=== PATIENT | male | born 1960 | race Caucasian/White ===

== ENCOUNTER 2024-04-08 16:41 | Inpatient (IN) | payer BC, SELFPAY ==
[2024-04-08] VITALS (29 sets, daily range): BP systolic 71–120; BP diastolic 48–89; BMI 24.3
--- NOTE | 2024-04-08 14:00 | ED.GENMED ---
History of Present Illness
General
Chief Complaint: Heart Rate Problem
Time Seen by Provider: 04/08/24 13:51
Travel History
Have you had any contact with someone who has COVID-19?: No
Do you have any symptoms of coronavirus? Fever > 100 degrees, chills, cough, shortness of breath, sore throat, loss of taste or smell, muscle aches, or headache?: No
History of Present Illness
History of Present Illness:
63-year-old male with history of paroxysmal atrial fibrillation not currently on anticoagulants presents to the emergency department for evaluation of heart palpitations beginning 5 days ago. He notes exertional fatigue along with the symptoms.
Has been using his home teletypesetter monitor and noting persistent A-fib. Contacted his crystal attacher and was advised to take increased doses of metoprolol however this has not affected his heart rates. Denies any chest pain at this time.
Review of Systems
Review of Systems
Allergies reviewed?: Yes
All Other Systems: ROS reviewed and negative except as documented in HPI and ROS
Phy Exam
Physical Exam
Physical Exam:
GEN: Well appearing, NAD, WDWN
Eyes: PERRLA, EOMs intact, no scleral icterus
HENT: NCAT, oral mucosa moist
Lungs: CTAB, no wheezes, rales, rhonchi, normal chest wall excursion
Cardiac: tachycardic, irregular
Abdomen: S, NT, ND, NABS, no masses or hepatosplenomegaly
Neuro: AO x 3
MSK: No gross deformity or ecchymosis. No edema. No digital clubbing
Skin: No rashes, petechiae. Normal color, no pallor or jaundice.
Psych: Calm, cooperative, proper hygiene
Course
Orders/Labs/Results
Orders:
Orders
04/08/24 13:39
Electrocardiogram (*1) Urgent
Reason for Study: Atrial Fibrillation
04/08/24 13:40
EKG- Treatment ONCE
04/08/24 13:59
Diltiazem HCl [Cardizem] 15 mg IV NOW STA
04/08/24 14:00
Diltiazem 125 mg/125 ml Nss [Cardizem] 125 mg in 125 ml IV PER PROTOCOL
Initial dose in mg/hr, then titrate:: 5
Titrate to keep:: Heart rate 80-100 bpm
Titrate by mg/hr:: 5 mg/hr
Frequency of titrations (minutes):: 15
Maximum dose in mg/hr:: 15
04/08/24 14:18
Basic Metabolic Panel Urgent
Complete Blood Count/With Diff Urgent
04/08/24 14:24
0.9% Sodium Chloride 1000 ml [Nss] 1,000 ml IV BOLUS
Diltiazem HCl [Cardizem] 25 mg IV NOW STA
04/08/24 15:04
Heparin 4,000 units IV NOW STA
Nursing to Place Non Medication Order As Directed
Physician Order: PTT 6 hours after initial start of Heparin infusion
04/08/24 15:15
Magnesium Urgent
Potassium Urgent
Protime/PTT Urgent
Heparin 56231 Units/250 ml 25,000 units in 250 ml IV PER PROTOCOL
Weight to be used for heparin protocol in kilograms (kg):: 73.5
Protocol:: Cardiac Tx/Acute Coronary
PTT Goal Range to be used:: PTT 73 to 111 seconds
Order type:: Initial
INITIAL Infusion Dose (UNITS/KG/hr) & then follow protocol:: 15 units/kg/hr
Infusion Dose in UNITS/hr & then follow protocol (UNITS/hr):: 1,100
INFUSION RATE in mL/hr & then follow protocol (mL/hr):: 11
PTT less than or equal to 64 seconds:: Increase rate by 200 units/hr (+ 2 mL/hr)
PTT 64.1 to 72.9 seconds:: Increase rate by 100 units/hr (+ 1 mL/hr)
PTT 73 to 111 seconds:: Target Range. No change in rate.
PTT 111.1 to 130.9 seconds:: Decrease rate by 100 units/hr (- 1 mL/hr)
PTT 131 to 199.9 seconds:: HOLD for 1 hr. Then decrease rate by 200 units/hr (- 2 mL/hr)
PTT greater than or equal to 200 seconds:: HOLD for 2 hrs & Notify Provider. Then decrease by 200 units/hr (-
2 mL/hr)
Lab follow-up:: Each change, PTT q6h until 2 consecutive are therapeutic. Then PTT
daily.
04/08/24 15:25
Amiodarone [Cordarone] [address]
04/08/24 15:29
Amiodarone [Cordarone] 150 mg Dextrose 5%/Water 100 ml [D5w] 100 ml IV NOW
04/08/24 15:36
0.9% Sodium Chloride 1000 ml [Nss] 1,000 ml IV BOLUS
04/08/24 15:45
Amiodarone [Cordarone] 900 mg DEXTROSE 5% PVC-free BAG [D5W PVC-free BAG] 500 ml IV PER PROTOCOL
Initial Dose in mg/min:: 1
Duration of initial dose (hours):: 6
Subsequent dose in mg/min:: 0.5
Duration of subsequent dose (hours):: 18
Maximum dose in mg/min:: 1
Hold and notify provider if:: Heart rate < 60 BPM or SBP < 90 mmHg or MAP < 60 mmHg
04/08/24 15:49
Diphenhydramine [Benadryl] 12.5 mg IV NOW STA
04/08/24 16:32
Admit/Transfer Patient As Directed
Co-Sign Provider:
Level of Care: Inpatient admission
Assign to:: IVU
Physician / Group: sean
Diagnosis: afib rvr
Reason for Hospitalization: afib rvr
Expected length of stay greater than two midnights?: Yes
ELOS- Estimated Length of Stay in days: 2
I certify the patient meets the requirements for IP care: Yes
04/08/24 16:33
Code Status As Directed
Resuscitation Status: Full Code
04/09/24 06:00
Echo Anibal W/echo Doppler (#17) IN AM
Reason for Study: ANIBAL guided CV for rapid Afib
Cardiology Consult: Chandrakant Underwood
NPO
Allow oral meds: Yes
Allow clear liquids: No
NPO with Ice Chips: No
Abnormal Lab Results
04/08/24 04/08/24
14:18 15:15
WBC 11.5 H 10^3/uL
(4.8-10.8)
RBC 4.15 L 10^6/uL
(4.70-6.10)
Hct 36.8 L %
(39.0-52.0)
MCH 31.8 H pg
(27.0-31.0)
Absolute Neuts (auto) 7.4 H 10^3/uL
(1.4-6.5)
Absolute Monos (auto) 0.8 H 10^3/uL
(0.1-0.6)
PT 15.5 H Sec
(11.4-14.6)
Carbon Dioxide 21 L mmol/L
(22-30)
BUN 23 H mg/dl
(9-20)
04/08/24 14:18
04/08/24 15:15
Vital Signs
Initial and Last Documented VS:
Initial Vital Signs
Temp Pulse Resp BP Pulse Ox
98.6 F 58 18 100/76 100
04/08/24 13:35 04/08/24 13:35 04/08/24 13:35 04/08/24 13:35 04/08/24 13:35
Last Documented Vital Signs
Temp Pulse Resp BP Pulse Ox
98.6 F 162 16 108/78 100
04/08/24 13:35 04/08/24 16:25 04/08/24 16:25 04/08/24 16:25 04/08/24 16:25
MDM/Problems Addressed
MDM/Problems Addressed:
Due to the patient's marked tachycardia he was initially started on IV diltiazem, received 2 boluses and continuous infusion. Despite these treatments there was essentially no change in his persistent rapid A-fib. Given that he had been taking
escalating doses of beta-blockers at home with no improvement I contacted cardiology and they are in agreement with the decision to start amiodarone. Shortly after initiation of amiodarone and heparin the patient noted diffuse itching, was given a
12.5 mg IV dose of diphenhydramine with resolution of symptoms. No concern for airway compromise. Uncertain if this could represent an allergy given that he has received both these medications in the past. Will be admitted to the hospitalist
service for further management
Comment
Comment:
EKG independently interpreted by me shows a rapid atrial fibrillation at a rate of 175
*Critical Care Note
Total Time (30-74mins, 75-104mins- exclusive of procedures): 65 minutes
comment:
Critical care time: 65 minutes
Critical care time was exclusive of: Separately billable procedures, treating other patients, and teaching time
Critical care was necessary to treat or prevent imminent or life-threatening deterioration of the following conditions: Rapid A-fib/hypotension
Critical care time spent personally by me on the following activities:
[x] Review of old charts
[x] Obtaining history from patient or surrogate
[x] Ordering and review of the laboratory studies
[x] Ordering and review of radiographic studies
[x] Ordering and performing treatments and interventions
[x] Patient patient's response to treatment
[x] Development of treatment plan with patient or surrogate
ED Attending Note
-
Portions of this chart may have been created with voice recognition software.� Occasional wrong word or��sound alike� substitutions may have occurred due to the inherent limitations of voice recognition software.
Discharge Plan
Departure
Patient Disposition: Admit
Date of Disposition: 04/08/24
Time of Disposition: 15:41
Admit to: IVU
Presentation/result/management discussed w/ accepting MD/DO: Hospitalist
Discharge Problem:
Atrial fibrillation with RVR
Prescriptions:
No Action
aspirin 81 mg Tablet,Chewable
81 mg PO DAILY Qty: 30 0RF
metoprolol succinate 25 mg Tablet Extended Release 24 Hr
12.5 mg PO DAILY Qty: 30 11RF
tadalafil 5 mg tablet
5 mg PO PRN PRN (Reason: ED)
Referrals:
Pepe Jason MD [Family Provider] -
Discharge Date and Time
Print Language: INDONESIAN
[2024-04-08] MEDS: CARDIZEM 15 MG IV (14:15)
[2024-04-08 14:24] LABS: % Basophils 0.5 % (0-2); % Eosinophils 2.3 % (0-6); % Immature Granulocytes 0.3 % (0-0.5); % Lymphocytes 25.5 % (20.5-51.1); % Monocytes 7.3 % (1.7-9.3); % Neutrophils 64.1 % (42.2-75.2); Absolute Basophils 0.1 10^3/uL (0-0.2); Absolute Eosinophils 0.3 10^3/uL (0-0.7); Absolute Lymphocytes 2.9 10^3/uL (1.2-3.4); Absolute Monocytes 0.8 10^3/uL (0.1-0.6); Absolute Neutrophils 7.4 10^3/uL (1.4-6.5); Hematocrit 36.8 % (39.0-52.0); Hemoglobin 13.2 g/dL (13.0-18.0); Mean Corp Hgb Conc. 35.9 g/dL (33.0-37.0); Mean Corpuscular Hgb 31.8 pg (27.0-31.0); Mean Corpuscular Volume 88.7 fL (80.0-94.0); Mean Platelet Volume 9.4 fL (7.4-10.4); Nucleated Red Blood Cells % 0 % (-); Platelet Count 256 10^3/uL (130-400); Red Blood Cell Count 4.15 10^6/uL (4.70-6.10); Red Cell Dist. Width 13.4 % (11.5-14.5); White Blood Cell Count 11.5 10^3/uL (4.8-10.8)
[2024-04-08] MEDS: CARDIZEM 125 IV (14:24)
[2024-04-08] MEDS: NSS 1000 IV ×2 (14:28→16:18)
[2024-04-08] MEDS: CARDIZEM 25 MG IV (14:29)
[2024-04-08 14:37] LABS: Blood Urea Nitrogen 23 mg/dl (9-20); Calcium 8.9 mg/dl (8.4-10.2); Carbon Dioxide 21 mmol/L (22-30); Chloride 107 mmol/L (98-107); Glucose 95 mg/dl (70-99); Sodium 135 mmol/L (135-145); eGFR > 60.00
[2024-04-08 15:36] LABS: INR 1.22; PT 15.5 Sec (11.4-14.6)
[2024-04-08 15:37] LABS: APTT 29.7 Sec (23.4-35.0)
[2024-04-08] MEDS: HEPARIN 4000 UNITS IV (15:38)
[2024-04-08 15:39] LABS: Magnesium 1.8 mg/dl (1.6-2.3); Potassium 4.6 mmol/L (3.5-5.1)
[2024-04-08] MEDS: HEPARIN 25000 UNITS/250 ML IV (15:39)
[2024-04-08] MEDS: CORDARONE 103 MG IV (15:40)
--- NOTE | 2024-04-08 15:54 | CON.CAR ---
Addendum entered and electronically signed by Chandrakant Underwood MD 04/08/24 17:00:
Patient seen and examined
Discussed plan of care with patient and as well as our rounding team
He has been in atrial fibrillation since Friday night and has been taking metoprolol 12.5 mg twice daily and has not converted to sinus rhythm.
In the ER he has heart rates in the 140s to 200s although is relatively asymptomatic noticing dyspnea and dyspnea on exertion. 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
Friday evening. He was evaluated by our team in the fall as an outpatient and discussed options for atrial fibrillation. 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
No syncope presyncope or chest pain. He has not had prior cardiac ischemic evaluation.
Examination:
Physical Exam
General: no apparent distress, not acutely ill
Neck: supple. no meningeal signs. normal psoterior pharynx
Heart: s1/s2 regular rate and rhythm, no murmur. equal radial pulses.
Lungs: no acute respiratory distress. clear bilaterally
Abdomen: normal bowel sounds. not tender. no CVAT
Neuro: alert and oriented. no focal neurological deficits
Skin: no rash
Psychiatric: well kept. interactive and cooperative
Extremities: no edema. no calf tenderness. negative homans. good distal pulses
Impression:
Afib with RVR
Paroxysmal Afib
Afib with RVR and aberrancy spontaneously converting to SR 07/17/23Not chronically anticoagulated due to low [id number] score and patient choice
Daily alcohol use
Recovered NICM EF was 45% by echo 07/17/23 and improved to 54% by echo 09/23/23
Echo 07/17/23: EF 45 to 50%, no regional wall motion abnormalities, normal RV size and function, no
Echo 09/23/23: EF 54%, no regional wall motion abnormalities, normal RV size and function, no MR, no AAS, normal pericardium without effusion
Plan:
-Patient came to [facility] today with palpitations that started Friday night and was found to be in Afib so cardiology has been consulted. Patient says that after drinking his 3rd beer Friday night, he never drinks more than 3, he started with
palpitations. He called the cardiology office on Friday and was told to take an extra Toprol XL 25 mg plus another 25 mg if no improvement an hour later. Cardiology called patient the next day to check on him and he reported that he was still in
Afib and HRs were only a bit better so his Toprol XL was increased to 25 mg BID, but when he started with lightheadedness today he decided to come to [facility]. No chest pain. No SOB.
-ECG reviewed by me shows Afib with RVR.
-Cardizem 25 mg IV x1 given in ER and then started on Cardizem gtt at 15 mg/hr. HRs remain 165-175.
-Amiodarone gtt ordered and started in ER.
-Reviewed with patient and that if patient fails to convert with IV meds overnight then will plan on a SHAN/CV. Patient recalls that this was plan during his last admission 06/2023 that is similar to his presentation today and he is comfortable
with this plan.
-Discussed short-term plan of SHAN/CV and also long-term plan of possible ablation or AAD. We will plan SHAN guided cardioversion tomorrow morning after initiation of Eliquis today. He is amenable to Eliquis on a daily basis until further long-term
therapies are pursued.
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 [id number] score is zero.
-No previous CHECO eval
-No previous ischemic eval, will plan on an outpatient stress test
-Patient will need re-eval by EP as an outpatient with Dr. Lacy. In addition to the metoprolol as dosed at 25 mg twice daily as long as his heart rates are reasonable and Eliquis would consider amiodarone 200 mg twice daily x 2 weeks then daily
at discharge just as a short-term medication until he can be evaluated by Dr. Lacy to consider ablation. Given this is his 'busy season' he wants to pursue interventional therapy in the mid to late summer.
Original Note:
Consultation
Consultation Request
Date/Time Consultation Requested: 04/08/24
Date/Time Consultation Performed: 04/08/24
Requesting Provider: Starla RAMACHANDRAN in ER
Performing Provider: Dr. Underwood
Reason for Consultation: Afib with RVR
Medical History
-
History of Present Illness:
Patient came to [facility] today with palpitations that started Friday night and was found to be in Afib so cardiology has been consulted. Patient says that after drinking his 3rd beer Friday night, he never drinks more than 3, he started with
palpitations. He called the cardiology office on Friday and was told to take an extra Toprol XL 25 mg plus another 25 mg if no improvement an hour later. Cardiology called patient the next day to check on him and he reported that he was still in
Afib and HRs were only a bit better so his Toprol XL was increased to 25 mg BID, but when he started with lightheadedness today he decided to come to [facility]. No chest pain. No SOB.
PMH:
Paroxysmal Afib
Afib with RVR and aberrancy spontaneously converting to SR 07/17/23
Not chronically anticoagulated due to low [id number] score and patient choice
Daily alcohol use
Recovered NICM EF was 45% by echo 07/17/23 and improved to 54% by echo 09/23/23
Past Medical History
Past Medical History: Other (in HPI)
Past Surgical History: Orthopedic
Social History
Tobacco: Former Smoker
Alcohol: Daily (2-3 beers a day, no more than 3 a day)
Personal:
Living: With Family
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
Family History
Family History: Cancer and Diabetes
Allergies / Home Medications
Allergy/AdvReac Type Severity Reaction Status Date / Time
No Known Allergies Allergy Verified 04/08/24 13:35
�Medication �Instructions �Recorded �Confirmed �Type
aspirin 81 mg chewable tablet 81 mg PO DAILY Arrhythmia #30 tabs 07/17/23 04/08/24 Rx
metoprolol succinate 25 mg 12.5 mg (1/2 x 25 mg) PO DAILY 07/17/23 04/08/24 Rx
tablet,extended release 24 hr Arrhythmia #30 tabs
tadalafil 5 mg tablet 5 mg PO PRN PRN ED 04/08/24 04/08/24 History
Review of Systems
-
History Source: Patient and Family ( sitting bedside)
All other systems: Negative unless noted
Physical Exam
Vital Signs
Temp Pulse Resp BP Pulse Ox
98.6 F 170 15 90/79 100
04/08/24 13:35 04/08/24 15:43 04/08/24 15:43 04/08/24 15:43 04/08/24 15:43
GEN: NAD. AAOx3
HEENT: EOMI, MMM, wearing glasses
LUNGS: CTA B/L, no wheezes or rales
CV: Irreg irreg and rapid, difficult to appreciate murmur
ABD: soft, BS+, NT, ND
EXT: No clubbing, cyanosis, lesions or edema B/L
NEURO: Gross non-focal
SKIN: Warm, dry and pink. No rash
Lab Results
04/08/24 14:18
04/08/24 15:15
Impression / Plan
-
PCP: Reggie DWYER, Dr. Jason
Cardiology: None prior to admission
Impression:
Afib with RVR
Paroxysmal Afib
Afib with RVR and aberrancy spontaneously converting to SR 07/17/23
Not chronically anticoagulated due to low [id number] score and patient choice
Daily alcohol use
Recovered NICM EF was 45% by echo 07/17/23 and improved to 54% by echo 09/23/23
Echo 07/17/23: EF 45 to 50%, no regional wall motion abnormalities, normal RV size and function, no
Echo 09/23/23: EF 54%, no regional wall motion abnormalities, normal RV size and function, no MR, no AAS, normal pericardium without effusion
Plan:
-Patient came to [facility] today with palpitations that started Friday night and was found to be in Afib so cardiology has been consulted. Patient says that after drinking his 3rd beer Friday night, he never drinks more than 3, he started with
palpitations. He called the cardiology office on Friday and was told to take an extra Toprol XL 25 mg plus another 25 mg if no improvement an hour later. Cardiology called patient the next day to check on him and he reported that he was still in
Afib and HRs were only a bit better so his Toprol XL was increased to 25 mg BID, but when he started with lightheadedness today he decided to come to [facility]. No chest pain. No SOB.
-ECG reviewed by me shows Afib with RVR.
-Cardizem 25 mg IV x1 given in ER and then started on Cardizem gtt at 15 mg/hr. HRs remain 165-175.
-Amiodarone gtt ordered and started in ER.
-Reviewed with patient and that if patient fails to convert with IV meds overnight then will plan on a SHAN/CV. Patient recalls that this was plan during his last admission 06/2023 that is similar to his presentation today and he is comfortable
with this plan.
-Discussed short-term plan of SHAN/CV and also long-term plan of possible ablation or AAD.
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 [id number] score is zero.
-No previous CHECO eval
-No previous ischemic eval, will plan on an outpatient stress test
-Patient will need re-eval by EP as an outpatient
[2024-04-08] MEDS: BENADRYL 12.5 MG IV (15:55)
[2024-04-08] MEDS: CORDARONE 518 MG IV (16:12)
--- NOTE | 2024-04-08 16:36 | HPS.HSE ---
Family Physician
-
Family Physician: Pepe Jason
Chief Complaint
-
palpitations, chest discomfort
History of Present Illness
63-year-old male past medical history of paroxysmal atrial fibrillation, alcohol use disorder, presenting with palpitations and chest discomfort over the past 4 to 5 days. He noticed tachycardia on his phone diana. He has also been having shortness
of breath when he lies down flat and has required multiple pillows to sleep more comfortably. He is also feeling feeling dizzy with exertion. Denies syncope. Denies any nausea or vomiting or sweating.
He does drink a case of beers every week. He stopped smoking 10 years ago. He does use marijuana. Denies any other drugs.
Medical History
Past Medical History
Past Medical History: Reports Other (paroxysmal atrial fibrillation, alcohol use disorder, )
Past Surgical History: Reports Other (Rotator cuff surgery, pins in foot )
Social History
Tobacco: Former Smoker
Alcohol: Occasional
Drug: Marijuana
Family History
Family History: Not pertinent
Allergies / Home Medications
Allergies reflects when Allergies were last updated in [facility].
Home Medications with original date entered in [facility]
Allergy/Medication List:
Allergies
Allergy/AdvReac Type Severity Reaction Status Date / Time
No Known Allergies Allergy Verified 04/08/24 13:35
Home Medications
aspirin 81 mg chewable tablet 81 mg PO DAILY Arrhythmia #30 tabs 07/17/23
metoprolol succinate 25 mg tablet,extended release 24 hr 12.5 mg (1/2 x 25 mg) PO DAILY Arrhythmia #30 tabs 07/17/23
tadalafil 5 mg tablet 5 mg PO PRN PRN ED 04/08/24
Review of Systems
-
History Source: Patient
A 12 point ROS was completed and negative except as noted: Yes
Constitutional: Reports No Symptoms
EENT: Reports No Symptoms
Respiratory: Reports See HPI
Cardiac: Reports See HPI
Abdomen/GI: Reports No Symptoms
: Reports No Symptoms
Musculoskeletal: Reports No Symptoms
Skin: Reports No Symptoms
Neurological: Reports No Symptoms
Endocrine: Reports No Symptoms
Hematologic/Lymphatic: Reports No Symptoms
Psych: Reports No Symptoms
Physical Exam
Vital Signs
Vital Signs
Temp Pulse Resp BP Pulse Ox
98.6 F 162 16 108/78 100
04/08/24 13:35 04/08/24 16:25 04/08/24 16:25 04/08/24 16:25 04/08/24 16:25
Physical Exam
General: Well Developed, Well Nourished and No Apparent Distress
HEENT: NormoCephalic, Moist mucous membranes and Atraumatic
Respiratory: Clear
Cardiac: S1/S2 and Regular Rhythm; No Murmur or Rub
GI: Soft, Non Tender, Non Distended and Normal Bowel Sounds; No Organomegaly
Rectal: Deferred by Provider
Musculoskeletal: No Clubbing, No Cyanosis and No Edema
Skin: No Rash
Neuro: Nonfocal/grossly intact
Laboratory Results
-
04/08/24 14:18
04/08/24 15:15
Laboratory Results
PT 15.5 Sec (11.4-14.6) H 04/08/24 15:15
INR 1.22 04/08/24 15:15
APTT 29.7 Sec (23.4-35.0) 04/08/24 15:15
Total Bilirubin Cancelled 04/08/24 14:18
AST Cancelled 04/08/24 14:18
ALT Cancelled 04/08/24 14:18
Alkaline Phosphatase Cancelled 04/08/24 14:18
Data Reviewed
-
Lab Data: Labs Reviewed by me
Old Records: Reviewed
Impression/Plan
-
IMPRESSION:
PLAN:
# Atrial fibrillation with RVR
-EKG showed atrial fibrillation with RVR
-Chest x-ray unremarkable
-IV fluids given, hold further fluids given shortness of breath and possible heart failure
-No significant response to Cardizem drip so amiodarone drip also started
-Continue metoprolol
-Check TSH
-Heparin drip, no longer requires aspirin
-N.p.o past midnight
-cardiology consulted and plan for SHAN cardioversion tomorrow
Alcohol use disorder
-Drinks case of beer per week, sometimes up to 4 beers at a time
Full code
DVT prophylaxis�heparin drip
Regular diet, n.p.o past midnight
[2024-04-08] MEDS: ELIQUIS 5 MG PO (20:25)
--- NOTE | 2024-04-08 22:30 | PTCARENOTE ---
VS captured for ED time frame
[2024-04-08 23:21] LABS: TSH Reflex To Free T4 2.12 uIU/ml (0.47-4.68)
--- NOTE | 2024-04-08 23:33 | PTCARENOTE ---
Pt rec'd from ED via stretcher in afib with rates from 120-180. occ pvc's noted and even a few short runs of Vt 5 beats long. Amio gtt infusing via RAC switched to right forearm (remove from joint area). Amio decreased as per protocol to 0.5 mg at
2215. Pt aware to call nursing immed if pain or swelling at site is noted. heparin gtt d/c'd at 8pm after po Eliquis given. During evening shift pt stated he was anxious; because over the past two days he has barely slept. Pt states 'when I fall
asleep I wake up choking and gasping for air'. Pt denies hx of sleep apnea. O2 at 2 lit n/c placed and pt placed on continuous pulse ox at HS. Pt aware of npo status after mn for SHAN/CV in am. call ball within reach.
[2024-04-09] VITALS (7 sets, daily range): BP systolic 95–112; BP diastolic 70–81
--- NOTE | 2024-04-09 05:06 | PTCARENOTE ---
Pt reports having slept well. stated that he did not have any further 'choking,sob' episodes. Pt can be heard clearing his throat repetitively this morning. sat on 2 lit n/c remained 99%. uncontrolled Afib on telemetry with freq pvc's noted. pt
remains npo for SHAN/CV today.
[2024-04-09 05:33] LABS: % Basophils 0.4 % (0-2); % Eosinophils 1.7 % (0-6); % Immature Granulocytes 0.4 % (0-0.5); % Lymphocytes 20.2 % (20.5-51.1); % Monocytes 6.6 % (1.7-9.3); % Neutrophils 70.7 % (42.2-75.2); Absolute Basophils 0.1 10^3/uL (0-0.2); Absolute Eosinophils 0.2 10^3/uL (0-0.7); Absolute Immature Granulocytes 0.1 10^3/uL (0-0.05); Absolute Lymphocytes 2.3 10^3/uL (1.2-3.4); Absolute Monocytes 0.8 10^3/uL (0.1-0.6); Absolute Neutrophils 8.1 10^3/uL (1.4-6.5); Hematocrit 35.6 % (39.0-52.0); Hemoglobin 12.7 g/dL (13.0-18.0); Mean Corp Hgb Conc. 35.7 g/dL (33.0-37.0); Mean Corpuscular Hgb 32.1 pg (27.0-31.0); Mean Corpuscular Volume 89.9 fL (80.0-94.0); Mean Platelet Volume 9.6 fL (7.4-10.4); Nucleated Red Blood Cells % 0 % (-); Platelet Count 228 10^3/uL (130-400); Red Blood Cell Count 3.96 10^6/uL (4.70-6.10); Red Cell Dist. Width 13.7 % (11.5-14.5); White Blood Cell Count 11.4 10^3/uL (4.8-10.8)
[2024-04-09 06:46] LABS: Hepatitis C Antibody Negative (Negative)
[2024-04-09 07:31] LABS: ALT (SGPT) 83 U/L (0-50); AST (SGOT) 38 U/L (17-59); Albumin 3.2 g/dl (3.5-5.0); Alkaline Phosphatase 98 U/L (38-126); Blood Urea Nitrogen 15 mg/dl (9-20); Calcium 8.7 mg/dl (8.4-10.2); Carbon Dioxide 19 mmol/L (22-30); Chloride 109 mmol/L (98-107); Estimated Creatinine Clearance 91 ml/min; Glucose 109 mg/dl (70-99); Potassium 4.3 mmol/L (3.5-5.1); Sodium 136 mmol/L (135-145); Total Bilirubin 1.1 mg/dl (0.2-1.3); Total Protein 6.3 g/dl (6.3-8.2); eGFR > 60.00
--- NOTE | 2024-04-09 07:34 | W.PN.CARDCBS ---
Addendum entered and electronically signed by Dm Reyes MD 04/09/24 12:42:
I saw and examined the patient.
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
Comment: Briefly, 63-year-old man past medical history of paroxysmal atrial fibrillation presenting with atrial fibrillation with rapid ventricular response
Unfortunately his heart rate has been difficult to control in A-fib
Underwent SHAN guided direct-current cardioversion with anabaptist of normal sinus rhythm earlier today
Started on IV amiodarone, plan to transition to oral amiodarone on discharge
Eliquis for cardioembolic prophylaxis
Ultimately may benefit from EP evaluation regarding ablation
LV function appeared to be mlid to moderately reduced by SHAN however rapid atrial fibrillation makes assessment challenging, would plan for reevaluation of LV function as an outpatient
Original Note:
Today's Communication / Plan
-
Continue IV amiodarone for now, transition to 200mg BID at discharge
Continue Eliquis 5mg BID
SHAN/CV this AM
Will arrange follow up
Impression / Plan
-
PCP: Reggie DWYER, Dr. Jason
Cardiology: None prior to admission
Impression:
Paroxysmal Afib w/ RVR
Afib with RVR and aberrancy spontaneously converting to SR 07/17/23
Not chronically anticoagulated due to low [id number] score and patient choice
Daily alcohol use
Recovered NICM EF was 45% by echo 07/17/23 and improved to 54% by echo 09/23/23
Echo 07/17/23: EF 45 to 50%, no regional wall motion abnormalities, normal RV size and function, no
Echo 09/23/23: EF 54%, no regional wall motion abnormalities, normal RV size and function, no MR, no AAS, normal pericardium without effusion
Plan:
-Presented with rapid afib. Started on cardizem drip in the ER, transitioned to IV amiodarone given hypotension.
-Remains in rapid afib this AM with HRs in the 170s.
-NPO for SHAN/CV this AM.
-Continue IV amiodarone for now, will transition to PO 200mg twice daily for 2 weeks and then transition to daily therafter.
-Continue Eliquis 5 mg BID. 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 [id number] score is zero.
-No previous CHECO eval, will consider as OP.
-No previous ischemic eval, will plan on an outpatient stress test.
-Will follow up with EP after discharge, patient prefers to hold off on further interventions until later in the summer.
HPI: Patient came to [facility] today with palpitations that started Friday night and was found to be in Afib so cardiology has been consulted. Patient says that after drinking his 3rd beer Friday night, he never drinks more than 3, he started with
palpitations. He called the cardiology office on Friday and was told to take an extra Toprol XL 25 mg plus another 25 mg if no improvement an hour later. Cardiology called patient the next day to check on him and he reported that he was still in
Afib and HRs were only a bit better so his Toprol XL was increased to 25 mg BID, but when he started with lightheadedness today he decided to come to [facility]. No chest pain. No SOB.
Progress Note - Bobbin Dumper
Subjective
Date of Service: April 09, 2024
He feels the same overnight, still w/ fatigue.
Objective
Labs:
04/09/24 05:00
04/09/24 06:41
Labs
Hgb 12.7 g/dL (13.0-18.0) L 04/09/24 05:00
Hct 35.6 % (39.0-52.0) L 04/09/24 05:00
Plt Count 228 10^3/uL (130-400) 04/09/24 05:00
PT 15.5 Sec (11.4-14.6) H 04/08/24 15:15
INR 1.22 04/08/24 15:15
APTT Cancelled 04/08/24 19:39
Sodium 136 mmol/L (135-145) 04/09/24 06:41
Potassium 4.3 mmol/L (3.5-5.1) 04/09/24 06:41
BUN 15 mg/dl (9-20) 04/09/24 06:41
Creatinine 0.8 mg/dL (0.7-1.3) 04/09/24 06:41
Glucose 109 mg/dl (70-99) H 04/09/24 06:41
Vital Signs and I&O:
Vital Signs
Temp Pulse Resp BP Pulse Ox
98.4 F 143 20 95/77 98
04/09/24 04:51 04/09/24 05:00 04/09/24 04:51 04/09/24 04:51 04/09/24 04:51
Vital Signs
Temp Pulse Resp BP Pulse Ox
98.4 F 143 20 95/77 98
04/09/24 04:51 04/09/24 05:00 04/09/24 04:51 04/09/24 04:51 04/09/24 04:51
Intake & Output
04/07/24 04/08/24 04/09/24 04/10/24
06:59 06:59 06:59 06:59
Intake Total 367 / 367
Output Total 775 / 775
Balance -408 / -408
Physical Exam
Physical Exam
GEN: No distress, awake, alert and oriented x3
HEENT: EOMI, MMM
LUNGS: CTA B/L, no wheezes or rales
CV: irregular, rapid, S1/S2, no murmur
EXT: No clubbing, cyanosis, lesions or edema B/L
NEURO: Gross non-focal
SKIN: Warm, dry and pink. No rash
[2024-04-09] MEDS: ELIQUIS 5 MG PO ×2 (07:59→20:32)
[2024-04-09] MEDS: TOPROL XL 12.5 MG PO (07:59)
--- NOTE | 2024-04-09 09:48 | PTCARENOTE ---
Pt continues in rapid atrial fib up to rate of 170-199, 10 beat run NSVT and frequent shorter runs of NSVT. Sophie Jc NP notified , pt NPO for CV today as soon as able. Pt on bedrest, reports feeling short of breath at times, SBP 125.
--- NOTE | 2024-04-09 12:30 | CM ---
priced vinay at [facility], his copay is $85- he can use the $10 copay card. [facility] does not have it in stock but is ordering it for tues. called [facility], they do have it in stock- pt given 30 day fee coupon and a 30 day script to
bring to [facility] after dc. pt agreeable to this plan.
--- NOTE | 2024-04-09 12:34 | CM ---
spoke to pt in room, she is prev indep, lives with his in a 2 story home with no steps to enter. he denies any dc planning needs or dme's. plan is for dc to home when medically stable.
--- NOTE | 2024-04-09 12:39 | ITS.CL.CARDI ---
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
Cardioversion
Procedure Report:
Procedure: SHAN-guided electrical cardioversion
Pre-operative diagnosis: Persistent atrial fibrillation
Post-operative diagnosis: Persistent atrial fibrillation status post DC cardioversion to sinus rhythm
Anesthesia: MAC
Attending Physician: Dm Reyes MD
Procedure Description: The patient was brought to the electrophysiology laboratory in the fasting state. Informed consent was obtained from the patient prior to the start of the procedure. Adherence to anticoagulation was confirmed. Electrodes were
placed on the patient and connected to an external defibrillator. Monitoring of blood pressure, ECG tracings, and pulse oximetry was initiated. The pads were applied to the patient in the anterior and posterior positions. The patient was sedated by
the anesthesiologist. A SHAN (reported separately) was performed prior to the cardioversion. No left atrial or left atrial appendage thrombus was seen. After the SHAN probe was removed, a 200 joule biphasic synchronized shock was delivered to the
patient under MAC anesthesia. Sinus rhythm was successfully restored. The patient recovered uneventfully from MAC anesthesia. There were no immediate post-procedure complications. The patient left the lab in good condition. The attending physician
was present throughout the entire procedure.
Impression: Successful SHAN-guided direct current cardioversion with yarsani of sinus rhythm after one 200 joule biphasic synchronized shock.
--- NOTE | 2024-04-09 13:46 | W.PN.HOSP.TC ---
Today's Communication/Plan
-
cardioversion today
switch to PO amio as per cards
eliquis
Assessment / Plan
Assessment / Plan
Physical Exam
General: Well Developed, Well Nourished and No Apparent Distress
HEENT: NormoCephalic, Moist mucous membranes and Atraumatic
Respiratory: Clear
Cardiac: S1/S2 and Regular Rhythm; No Murmur or Rub
GI: Soft, Non Tender, Non Distended and Normal Bowel Sounds; No Organomegaly
Rectal: Deferred by Provider
Musculoskeletal: No Clubbing, No Cyanosis and No Edema
Skin: No Rash
Neuro: Nonfocal/grossly intact
PLAN:
# Atrial fibrillation with RVR
-EKG showed atrial fibrillation with RVR
-No significant response to Cardizem drip so amiodarone drip also started; also suboptimal response
-SHAN/Cardioversion today - went back to NSR
�Transition to p.o. amiodarone on discharge
- Cont BB
� Eliquis required embolic prophylaxis
� EP evaluation regarding ablation outpatient
� LV function mildly to moderately reduced, however in rapid A-fib�will need repeat outpatient echo
Alcohol use disorder
-Drinks case of beer per week, sometimes up to 4 beers at a time
�Educated on cessation
Full code
DVT prophylaxis�Eliquis
Regular diet
Anticipated Discharge: 24 - 48 hours
Subjective/Interval History
-
Date of Service: April 09, 2024
elevated hr despite amio ggt
Objective Data
-
Labs:
Laboratory Results
04/09/24 04/09/24
05:00 06:41
WBC 11.4 H
Hgb 12.7 L
Hct 35.6 L
Plt Count 228
Sodium Cancelled 136
Potassium Cancelled 4.3
Chloride Cancelled 109 H
Carbon Dioxide Cancelled 19 L
BUN Cancelled 15
Creatinine Cancelled 0.8
Glucose Cancelled 109 H
Calcium Cancelled 8.7
Total Bilirubin Cancelled 1.1
AST Cancelled 38
ALT Cancelled 83 H
Alkaline Phosphatase Cancelled 98
Vital Signs:
Vital Signs
Temp Pulse Resp BP Pulse Ox
98.6 F 82 18 107/75 98
04/09/24 13:24 04/09/24 13:17 04/09/24 13:24 04/09/24 13:17 04/09/24 13:25
I&O
04/08/24 04/09/24 04/10/24
06:59 06:59 06:59
Intake Total 367 / 367
Output Total 775 / 775 400 / 400
Balance -408 / -408 -400 / -400
Review of Systems
-
History Source: Patient
All other systems: Not reviewed unless documented
Data Reviewed
-
Diagnostic Radiology: Image personally visualized and interpreted and Report Reviewed by me
Labs: Labs Reviewed by me
--- NOTE | 2024-04-09 15:11 | PTCARENOTE ---
Addendum entered by Dalila Law RN 04/09/24 18:40:
Amiodarone infusion completed at 16:15, peripheral IV removed at that time, plan to start oral amiodarone tonight.
Original Note:
Pt in rapid atrial fib at a rate @ 150-190 with 10 beat runs of NSVT. Pt c/o SOB. Pt had SHAN/CV to sinus rhythm, pt recovered without problem.
[2024-04-09] MEDS: PACERONE 200 MG PO (20:32)
[2024-04-09] MEDS: TYLENOL 650 MG PO (20:56)
--- NOTE | 2024-04-10 00:23 | PTCARENOTE ---
Assumed care. Patient walking in room, NSR in the 80-90's. Tylenol given for a dull headache, lights off,patient currently sleeping, call ball in reach
[2024-04-10 03:09] VITALS: BP 117/60
[2024-04-10] MEDS: MOTRIN 400 MG PO (03:54)
--- NOTE | 2024-04-10 04:00 | PTCARENOTE ---
Addendum entered by Juan Alberto Barrios RN 04/10/24 05:45:
Patient complaints of pain in the back of right knee. Worsens with lifting and bending; has feeling of fullness behind his knee. Leg elevated on pillow, discouraged rubbing the behind the knee. Notified KULDIP Graves, ultrasound ordered for today,
Motrin given for pain. Pain is only present when he moves is and rates it a 6 out 10
Original Note:
Patient complaints of pain in the back of right knee. Worsens with lifting and bending; has fullness behind his knee. Leg elevated on pillow, discouraged rubbing the behind the knee. Notified KULDIP Graves, ultrasound ordered for today, Motrin
given for pain. Pain is only present when he moves is and rates it a 6 out 10
[2024-04-10 04:14] LABS: Hematocrit 39.3 % (39.0-52.0); Hemoglobin 13.3 g/dL (13.0-18.0); Mean Corp Hgb Conc. 33.8 g/dL (33.0-37.0); Mean Corpuscular Hgb 31.5 pg (27.0-31.0); Mean Corpuscular Volume 93.1 fL (80.0-94.0); Mean Platelet Volume 9.8 fL (7.4-10.4); Platelet Count 211 10^3/uL (130-400); Red Blood Cell Count 4.22 10^6/uL (4.70-6.10); Red Cell Dist. Width 13.4 % (11.5-14.5)
[2024-04-10 04:42] LABS: ALT (SGPT) 65 U/L (0-50); AST (SGOT) 24 U/L (17-59); Albumin 3.3 g/dl (3.5-5.0); Alkaline Phosphatase 93 U/L (38-126); Blood Urea Nitrogen 14 mg/dl (9-20); Calcium 8.6 mg/dl (8.4-10.2); Carbon Dioxide 24 mmol/L (22-30); Chloride 105 mmol/L (98-107); Estimated Creatinine Clearance 81 ml/min; Glucose 100 mg/dl (70-99); Potassium 4.1 mmol/L (3.5-5.1); Sodium 136 mmol/L (135-145); Total Bilirubin 0.9 mg/dl (0.2-1.3); Total Protein 6.4 g/dl (6.3-8.2); eGFR > 60.00
[2024-04-10 06:56] VITALS: BP 106/76
[2024-04-10] MEDS: TOPROL XL 12.5 MG PO (08:24)
[2024-04-10] MEDS: PACERONE 200 MG PO (08:25)
[2024-04-10] MEDS: ELIQUIS 5 MG PO (08:32)
--- NOTE | 2024-04-10 08:32 | W.PN.CARDCBS ---
Addendum entered and electronically signed by Miquel Rios MD 04/10/24 10:18:
Patient interviewed and examined, note reviewed. Agree with assessments and findings.
Per patient ultrasound of lower extremity is negative, report is pending.
Regular rate and rhythm, lungs clear, no distress, vital signs reviewed, BUN and creatinine are 14 and 0.9 with potassium of 4.1, telemetry normal sinus rhythm, PACs
Recommended cardiac medications at discharge:
Metoprolol ER 12.5 mg daily
Apixaban 5 mg p.o. twice daily, amiodarone 200 mg p.o. twice daily x 4 weeks then to reassess, possibly 200 mg a day
Stop aspirin
Cardiac follow-up arranged
Original Note:
Today's Communication / Plan
-
Right LE u/s today
Remains in SR, cont amio 200 mg BID for 2 weeks then once daily thereafter
EP f/u as an outpatient for possible alternative AAD or ablation
Cont Eliquis for 4 weeks
Impression / Plan
-
PCP: Reggie DWYER, Dr. Jason
Cardiology: None prior to admission
Impression:
Paroxysmal Afib w/ RVR
Afib with RVR and aberrancy spontaneously converting to SR 07/17/23
s/p successful SHAN/CV 04/09/24
Not chronically anticoagulated due to low [id number] score and patient choice
Daily alcohol use
Recovered NICM EF was 45% by echo 07/17/23 and improved to 54% by echo 09/23/23
Right knee pain
Echo 07/17/23: EF 45 to 50%, no regional wall motion abnormalities, normal RV size and function, no
Echo 09/23/23: EF 54%, no regional wall motion abnormalities, normal RV size and function, no MR, no AAS, normal pericardium without effusion
Plan:
-Patient remains in SR following SHAN/CV 04/09/24.
-Talked with patient about natural progression of Afib. Made a plan for short-term rhythm control including addition of amiodarone 200 mg BID for 2 weeks then once daily thereafter. Made a long-term plan for office visit with his EP, Dr. Lacy, to
discuss ablation or alternative AAD.
-[id number] score is zero, but patient will continue with Eliquis 5 mg BID for 4 weeks after SHAN/CV 04/09/24
-No previous CHECO eval, will consider as outpatient.
-No previous ischemic eval, will plan on an outpatient stress test.
-Right knee pain and swelling starting 04/09/24 late night. No previous injury. Plan is for u/s on 04/10/24 AM.
HPI: Patient came to [facility] today with palpitations that started Friday night and was found to be in Afib so cardiology has been consulted. Patient says that after drinking his 3rd beer Friday night, he never drinks more than 3, he started with
palpitations. He called the cardiology office on Friday and was told to take an extra Toprol XL 25 mg plus another 25 mg if no improvement an hour later. Cardiology called patient the next day to check on him and he reported that he was still in
Afib and HRs were only a bit better so his Toprol XL was increased to 25 mg BID, but when he started with lightheadedness today he decided [facility]. No chest pain. No SOB.
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
Subjective
Date of Service: April 10, 2024
He started with right knee pain last night and now feels like he can't walk on the right leg
Objective
Labs:
04/10/24 03:19
04/10/24 03:19
Labs
Hgb 13.3 g/dL (13.0-18.0) 04/10/24 03:19
Hct 39.3 % (39.0-52.0) 04/10/24 03:19
Plt Count 211 10^3/uL (130-400) 04/10/24 03:19
PT 15.5 Sec (11.4-14.6) H 04/08/24 15:15
INR 1.22 04/08/24 15:15
APTT Cancelled 04/08/24 19:39
Sodium 136 mmol/L (135-145) 04/10/24 03:19
Potassium 4.1 mmol/L (3.5-5.1) 04/10/24 03:19
BUN 14 mg/dl (9-20) 04/10/24 03:19
Creatinine 0.9 mg/dL (0.7-1.3) 04/10/24 03:19
Glucose 100 mg/dl (70-99) H 04/10/24 03:19
Vital Signs and I&O:
Vital Signs
Temp Pulse Resp BP Pulse Ox
98.7 F 73 16 117/60 100
04/10/24 06:54 04/10/24 06:54 04/10/24 06:54 04/10/24 03:09 04/10/24 06:54
Vital Signs
Temp Pulse Resp BP Pulse Ox
98.7 F 73 16 117/60 100
04/10/24 06:54 04/10/24 06:54 04/10/24 06:54 04/10/24 03:09 04/10/24 06:54
Intake & Output
04/08/24 04/09/24 04/10/24 04/11/24
06:59 06:59 06:59 06:59
Intake Total 367 / 367 1190 / 1190
Output Total 775 / 775 1000 / 1000
Balance -408 / -408 190 / 190
Physical Exam
Physical Exam
GEN: NAD. AAOx3
HEENT: EOMI, MMM, wearing glasses
LUNGS: No audible wheeze
CV: SR on tele
ABD: ND
EXT: Right knee swollen and tender. No edema B/L
NEURO: Gross non-focal
SKIN: No rash
[2024-04-10 11:22] VITALS: BP 109/64
--- NOTE | 2024-04-10 11:26 | W.PN.HOSP.TC ---
Addendum entered and electronically signed by Arthur Rubin MD 04/11/24 15:34:
[id number]
Original Note:
Today's Communication/Plan
-
-Metoprolol ER 12.5 mg daily
-Apixaban 5 mg p.o. twice daily
-amiodarone 200 mg p.o. twice daily x 4 weeks then to reassess, possibly 200 mg a day
-Stop aspirin
- EP evaluation regarding ablation outpatient
� LV function mildly to moderately reduced, however in rapid A-fib�will need repeat outpatient echo
-The cardiology office will call to schedule a Lexiscan nuclear stress test prior to your appt with Dr. Lacy.
-Pt instructed to reach out to Dr. Jason's office to schedule a sleep study due to recurrent atrial fibrillation
-Right Knee pain - assessment outpatient if continues - refuses PT at this time
Assessment / Plan
Assessment / Plan
Physical Exam
General: Well Developed, Well Nourished and No Apparent Distress
HEENT: NormoCephalic, Moist mucous membranes and Atraumatic
Respiratory: Clear
Cardiac: S1/S2 and Regular Rhythm; No Murmur or Rub
GI: Soft, Non Tender, Non Distended and Normal Bowel Sounds; No Organomegaly
Rectal: Deferred by Provider
Musculoskeletal: No Clubbing, No Cyanosis and No Edema; no knee swelling, tenderness, erythema
Skin: No Rash
Neuro: Nonfocal/grossly intact
PLAN:
# Atrial fibrillation with RVR
-SHAN/Cardioversion 04/09 - went back to NSR
�Transition to p.o. amiodarone on discharge
-Metoprolol ER 12.5 mg daily
-Apixaban 5 mg p.o. twice daily
-amiodarone 200 mg p.o. twice daily x 4 weeks then to reassess, possibly 200 mg a day
-Stop aspirin
- EP evaluation regarding ablation outpatient
� LV function mildly to moderately reduced, however in rapid A-fib�will need repeat outpatient echo
-The cardiology office will call to schedule a Lexiscan nuclear stress test prior to your appt with Dr. Lacy.
-Pt instructed to reach out to Dr. Jason's office to schedule a sleep study due to recurrent atrial fibrillation.
#Right knee pain
-no erythema or evidence of septic arthritis
-possibly 2/2 to immobility in active patient
-dvt study negative
-f/u pcp outpatient for further testing in no changes
Alcohol use disorder
-Drinks case of beer per week, sometimes up to 4 beers at a time
�Educated on cessation
Full code
DVT prophylaxis�Eliquis
More than 30 minutes spent in discharge including
Final examination of the patient
Summarizing hospital stay
Instructions for continuing care to all relevant caregivers
Preparation of discharge records, prescriptions, and referral forms
Total time spent (35 in minutes):
Anticipated Discharge: Today
Subjective/Interval History
-
Date of Service: April 10, 2024
now back in NSR; has some right knee pain - dvt study neg
Objective Data
-
Labs:
Laboratory Results
04/10/24
03:19
WBC 13.0 H
Hgb 13.3
Hct 39.3
Plt Count 211
Sodium 136
Potassium 4.1
Chloride 105
Carbon Dioxide 24
BUN 14
Creatinine 0.9
Glucose 100 H
Calcium 8.6
Total Bilirubin 0.9
AST 24
ALT 65 H
Alkaline Phosphatase 93
Vital Signs:
Vital Signs
Temp Pulse Resp BP Pulse Ox
98.1 F 75 16 117/60 100
04/10/24 11:20 04/10/24 11:20 04/10/24 11:20 04/10/24 03:09 04/10/24 11:20
I&O
04/09/24 04/10/24 04/11/24
06:59 06:59 06:59
Intake Total 367 / 367 1190 / 1190
Output Total 775 / 775 1000 / 1000
Balance -408 / -408 190 / 190
Review of Systems
-
History Source: Patient
All other systems: Not reviewed unless documented
Data Reviewed
-
Diagnostic Radiology: Image personally visualized and interpreted and Report Reviewed by me
Labs: Labs Reviewed by me
--- NOTE | 2024-04-10 11:34 | W.DS.TRANS ---
DC Summary - Clip Wrapper
-
Discharge Instructions:
Sleep Apnea Risk Intermediate
Discharge Diagnosis/Procedures Paroxysmal atrial fibrillation, s/p successful
SHAN and cardioversion 04/09/24
Diet As tolerated,Low Cholesterol,Low Fat,Other diet
Additional Diets avoid alcohol
Activity Other activity
Additional Activity See attached sheet
Driving Restrictions No driving for 24 hours
Bathing Restrictions None
Others Tests -The cardiology office will call you to
scheduled a Lexiscan nuclear stress test prior
to your appt with Dr. Lacy.
-Please reach out to Dr. Jason's office to
schedule a sleep study due to recurrent atrial
fibrillation.
Instructions:
Stand-Alone Forms: DC Instructions- Cath/EP Lab
Changes to Home Medications: Yes
Discharge Medications:
DC Medications w/original date entered in [facility]
metoprolol succinate 25 mg tablet,extended release 24 hr 12.5 mg (1/2 x 25 mg) PO DAILY Arrhythmia #30 tabs 07/17/23
tadalafil 5 mg tablet 5 mg PO PRN PRN ED 04/08/24
amiodarone 200 mg tablet 200 mg PO DAILY Arrhythmia #30 tabs 04/10/24
amiodarone 200 mg tablet (Pacerone) 200 mg PO BID 28 days #56 tabs 04/10/24
apixaban 5 mg tablet (Eliquis) 5 mg PO BID Blood clot prevention/tx #60 tabs 04/10/24
Home Medication Changes
amiodarone 200 mg tablet 200 mg PO DAILY Arrhythmia #30 tabs 04/10/24
amiodarone 200 mg tablet (Pacerone) 200 mg PO BID 28 days #56 tabs 04/10/24
apixaban 5 mg tablet (Eliquis) 5 mg PO BID Blood clot prevention/tx #60 tabs 04/10/24
Pending Results: No
--- NOTE | 2024-04-10 13:50 | PTCARENOTE ---
Pt received awake, alert and oriented. Denies any knee pain while laying in bed. Discharge instructions given and reviewed. Remains in SR, rate in the 80's. Pt discharged to home with his . Pt verbalized complete understanding of discharge
instructions.
== END 2024-04-10 13:54 | disposition home or self-care (01) | DRG 310 ==
LOC: IVU 16:41
PROVIDERS: Internal Medicine Cardiovascular Disease; Physician Assistant; ADMITTING PHYSICIAN Hospitalist; ATTENDING PHYSICIAN Internal Medicine; EMERGENCY PHYSICIAN Emergency Medicine; FAMILY PHYSICIAN Family Medicine; OTHER PHYSICIAN Internal Medicine Cardiovascular Disease
PROC: 3E033RZ Introduction of Antiarrhythmic into Peripheral Vein, Percutaneous Approach (ICD-10-PCS; 2024-04-08)
PROC: 5A2204Z Restoration of Cardiac Rhythm, Single (ICD-10-PCS; 2024-04-09)
PROC: B24BZZ4 Ultrasonography of Heart with Aorta, Transesophageal (ICD-10-PCS; 2024-04-09)
DX: I48.0 Paroxysmal atrial fibrillation (principal); I42.8 Other cardiomyopathies; F10.10 Alcohol abuse, uncomplicated; Z87.891 Personal history of nicotine dependence; Z79.82 Long term (current) use of aspirin; M25.561 Pain in right knee
CPT/HCPCS: 80048; 80053; 83735; 84132; 84443; 85025; 85027; 85610; 85730; 86803; 92960; 93005; 93312; 93320; 93325; 93970; 96361; 96374; 96375; 99291; Q9957

== ENCOUNTER → 2024-04-29 11:45 | Outpatient (REF) | payer BC, SELFPAY | LOC: DHCBC/DCA 11:45 | PROVIDERS: ATTENDING PHYSICIAN Internal Medicine Cardiovascular Disease; FAMILY PHYSICIAN Family Medicine | DX: I48.0 Paroxysmal atrial fibrillation (principal); I42.8 Other cardiomyopathies | CPT/HCPCS: 78452; 93017; A9500; J2785 ==

== ENCOUNTER 2024-07-02 08:31 | Day surgery (SDC) | payer BC, SELFPAY ==
[2024-06-14 08:48] VITALS: BMI 24.4
[2024-06-14 09:17] LABS: % Basophils 0.6 % (0-2); % Eosinophils 3.3 % (0-6); % Immature Granulocytes 0.3 % (0-0.5); % Lymphocytes 28.6 % (20.5-51.1); % Monocytes 8.3 % (1.7-9.3); % Neutrophils 58.9 % (42.2-75.2); Absolute Basophils 0.1 10^3/uL (0-0.2); Absolute Eosinophils 0.3 10^3/uL (0-0.7); Absolute Lymphocytes 2.3 10^3/uL (1.2-3.4); Absolute Monocytes 0.7 10^3/uL (0.1-0.6); Absolute Neutrophils 4.7 10^3/uL (1.4-6.5); Hematocrit 40.6 % (39.0-52.0); Mean Corp Hgb Conc. 34.5 g/dL (33.0-37.0); Mean Corpuscular Hgb 31.1 pg (27.0-31.0); Mean Corpuscular Volume 90.2 fL (80.0-94.0); Mean Platelet Volume 8.3 fL (7.4-10.4); Nucleated Red Blood Cells % 0 % (-); Platelet Count 249 10^3/uL (130-400); Red Cell Dist. Width 13.3 % (11.5-14.5); White Blood Cell Count 7.9 10^3/uL (4.8-10.8)
[2024-06-14 09:26] LABS: INR 1.14; PT 14.4 Sec (11.4-14.6)
[2024-06-14 09:38] LABS: ALT (SGPT) 21 U/L (0-50); AST (SGOT) 24 U/L (17-59); Albumin 4.4 g/dl (3.5-5.0); Alkaline Phosphatase 72 U/L (38-126); Blood Urea Nitrogen 24 mg/dl (9-20); Calcium 9.5 mg/dl (8.4-10.2); Carbon Dioxide 28 mmol/L (22-30); Chloride 103 mmol/L (98-107); Estimated Creatinine Clearance 63 ml/min; Glucose 95 mg/dl (70-99); Potassium 4.7 mmol/L (3.5-5.1); Sodium 138 mmol/L (135-145); Total Bilirubin 0.6 mg/dl (0.2-1.3); Total Protein 7.4 g/dl (6.3-8.2); eGFR > 60.00
[2024-07-02] VITALS (17 sets, daily range): BP systolic 110–148; BP diastolic 72–100
[2024-07-02] MEDS: TYLENOL 1000 MG PO (09:31)
[2024-07-02 12:20] LABS: ACT-LR - POC 266 Seconds (116-155)
[2024-07-02 12:37] LABS: ACT-LR - POC 340 Seconds (116-155)
[2024-07-02 12:59] LABS: ACT-LR - POC 327 Seconds (116-155)
[2024-07-02 13:24] LABS: ACT-LR - POC 161 Seconds (116-155)
--- NOTE | 2024-07-02 13:32 | ITS.CL.ABL ---
Addendum entered and electronically signed by Nazario Lacy DO 07/02/24 13:44:
Addendum:
During discussion consent process prior to procedure, patient reported that he had missed doses of his blood thinner most recently this past week. Following thorough discussion, patient to undergo SHAN to rule out left atrial appendage thrombus
prior to electrophysiology study and pulsed field ablation. SHAN discussion performed by Dr. Leah Lyman including risks and benefits. Consent obtained. Patient underwent SHAN (see full report by Dr. Lyman who performed procedure) which
did not demonstrate left atrial appendage thrombus. We therefore were able to proceed with electrophysiology study and ablation of AF.
Original Note:
Machine [employer] - Ablation
Ablation
Procedure Report:
Primary Care: Sara Freitas MD
Procedure Date: 07/02/2024
Patient History:
Patient is a pleasant 64-year-old male with a past medical history for alcohol use, gynecomastia, nonischemic cardiomyopathy, and paroxysmal symptomatic atrial fibrillation.
See H&P for complete details.
Indication:
Symptomatic paroxysmal atrial fibrillation
Nonischemic cardiomyopathy
Arrhythmia Specific History:
Prior Medical Therapies for Rate and Rhythm Control:
X Beta-sofi
[ ] Calcium channel-sofi
X Amiodarone - intolerant
[ ] Dronederone
[ ] Sotalol
[ ] Flecainide
[ ] Dofetilide
[ ] Options limited by bradycardia
[ ] Options limited by comorbid renal disease
Prior Procedural Therapies for AF/AFL:
X Cardioversion
[ ] Pulmonary Vein Isolation
[ ] Posterior Wall Isolation
[ ] Additional lines (Specify)
[ ] Surgical Adams-MAZE or PVI (Specify)
Procedure Performed:
X AF ablation procedure (30897) -- includes LA/CS pacing, trans-septal, 3D mapping, + ICE
[ ] +IV drug (87160)
[ ] +Other Arrhythmia (85380)
[ ] +Other AF Line/ablation (02323)
Risks and expected recovery has been explained in detail. Alternative options have been explored, and in a shared-decision making fashion we have decided that this was the most appropriate procedure.
Method
NPO status confirmed. Grounding pad applied. Defibrillator pads applied. Continuous surface ECG, pulse oximetry, and blood pressure were monitored. Procedure was performed under general anesthesia, with anesthesia services.
Both groins were clipped, prepped with Chloraprep, and draped in sterile fashion. Time out was called. Local anesthesia administered with bupivacaine. The right and left femoral veins were accessed for catheter placement, using ultrasound guidance,
micro-puncture needle/wire, and modified seldinger technique. 3 sheaths were placed. The following catheters were used:
[ ] Tacticath SE (D/F Curve) ablation catheter
X Viewflex 9Fr ICE catheter
X Inquiry decapolar 6Fr diagnostic catheter
[ ] CRD Hex 6Fr
[ ] Arctic Front Advance Cryoballoon ([ ]28mm[ ]23mm)
[ ] Achieve Advance mapping catheter ([ ]15mm[ ]20mm)
X FlexCath Contour 10 Fr with PulseSelect PFA Catheter
X Advisor HD Grid Mapping Catheter, SE
[ ] Acuson AcuNav 8 Fr ICE catheter
[ ]Other: [ ]
Intracardiac ultrasound (ICE) was carefully advanced into the right atrium to guide sheath placement over a J-wire, catheter placement, guide trans-septal puncture, identify potential complications, identify anatomic structures and ensure proper
contact between ablation catheter and tissue.
Heparin was given prior to trans-septal puncture. Heparin was given to achieve and maintain a target ACT of 300-400 seconds throughout the procedure.
Trans-septal access was performed under ICE guidance. The trans-septal puncture was performed with a SafeSept wire through a Brockenbrough needle assembly through the steerable sheath. The wire was visualized as it entered the LSPV and system
advanced under ICE guidance and fluoroscopy into the LA. The Brockenbrough needle assembly, SafeSept wire and sheath dilator were removed under negative pressure. LA pressure was measured and recorded.
ICE and 3D mapping was performed to identify relevant cardiac structures. A careful 3D map was created to assess for regions of low-voltage and abnormal electrogram signals using HD grid mapping catheter and PulseSelect catheter. Additional mapping
was performed as outlined below.
Prior to ablation, glycopyrrolate was provided. PulseSelect catheter was advanced over J-wire to the ostium of each vein. Pulmonary vein isolation was performed with ostial and antral lesions in a circumferential manner. Contact was visualized via
EAM, ICE, fluoroscopy, and EGM signals. Following completion of ablation lesions, a post-ablation voltage/activation map was performed in sinus rhythm. Entrance and exit block were confirmed for each vein. Of note, during study, patient had
episodes of nonsustained atrial tachycardia appearing concentric during ablation of the right superior pulmonary vein. These episodes lasting no more than 10 to 15 seconds with decreasing cycle length and return to sinus rhythm. No sustained
arrhythmias noted during electrophysiology study.
Catheter and sheath were removed from the left atrium and post-ablation intracardiac echo evaluation was consistent with pre-ablation with no changes and no pericardial effusion and there is no left atrial thrombus or left ventricle thrombus seen.
Electrophysiology study was performed. Hemostasis was obtained with figure of 8 stitch for each groin and with manual pressure. Protamine was used for reversal.
Estimated Blood Loss
5 mL
Complications
None
Fluoroscopy: 2.9 minutes; 5.04 mGy; DAP 0.704
Baseline Intervals:
Rhythm: SR
NC: 127 ms
QRS: 85 ms
QT: 367 ms
QTc: 425 ms
A-A: 744 ms
R-R: 744 ms
Post-Procedure Intervals:
NC: 127 ms
QRS: 95 ms
QT: 387 ms
QTc: 440 ms
A-A: 775 ms
R-R: 775 ms
AVWB: 260 ms
AERP: 600/230 ms
Recommendations
- Bedrest with straight-leg precautions as ordered
- Anticipate same day discharge if patient meeting clinical metrics
- Resume home medications as indicated
- Ok to resume anticoagulation tonight if patient and groin sites stable
- PPI daily for 30 days
- Plan for follow-up in office as scheduled
Nazario Lacy DO
Clinical Cardiac Machine [employer]er
cc: Sara Freitas MD
--- NOTE | 2024-07-02 16:27 | W.PN.UPDATE ---
Update Note
Progress Note Update
Pt seen post PFA. Right groin site without ht/bleeding, non tender. Post EKG NSR w/PACs, 75, no acute changes. Resume eliquis tonight, continue other meds as before. 30 day course protonix sent to pharmacy. Followup with Dr. Lacy as scheduled.
Home later today if groin site/tele remain stable.
[2024-07-02] MEDS: ANESTHETIC LOZENGE 1 LOZENGE PO (17:20)
== END 2024-07-02 18:15 | disposition home or self-care (01) ==
LOC: CATH 08:31
PROVIDERS: ATTENDING PHYSICIAN Internal Medicine Cardiovascular Disease; FAMILY PHYSICIAN Family Medicine
DX: I48.0 Paroxysmal atrial fibrillation (principal); I42.8 Other cardiomyopathies; Z87.891 Personal history of nicotine dependence; R00.2 Palpitations; R06.02 Shortness of breath; R53.83 Other fatigue; Z79.01 Long term (current) use of anticoagulants; Z79.899 Other long term (current) drug therapy
CPT/HCPCS: 93312; 93320; 93325; C1732; C1894; C1733; C1769; C1766; 36415; 75572; 76937; 80053; 83735; 85025; 85347; 85610; 86850; 86900; 86901; 93005; 93656; Q9967

== ENCOUNTER → 2025-01-13 09:33 | Outpatient (REF) | payer BC, SELFPAY | LOC: RCS 09:33 | PROVIDERS: ATTENDING PHYSICIAN Internal Medicine Cardiovascular Disease; FAMILY PHYSICIAN Family Medicine | DX: I48.0 Paroxysmal atrial fibrillation (principal) | CPT/HCPCS: 93306 ==

== ENCOUNTER → 2025-03-02 08:26 | Outpatient (REF) | payer BC, SELFPAY | LOC: RCS 08:26 | PROVIDERS: ATTENDING PHYSICIAN Internal Medicine Cardiovascular Disease; FAMILY PHYSICIAN Family Medicine | DX: I48.0 Paroxysmal atrial fibrillation (principal) | CPT/HCPCS: 93308 ==

== ENCOUNTER 2025-03-31 06:15 | Day surgery (SDC) | payer BC, SELFPAY | END 2025-03-31 12:48 | disposition home or self-care (01) | LOC: GI 06:15 | PROVIDERS: ATTENDING PHYSICIAN Internal Medicine | DX: Z12.11 Encounter for screening for malignant neoplasm of colon (principal); R19.5 Other fecal abnormalities; K64.8 Other hemorrhoids; K57.30 Diverticulosis of large intestine without perforation or abscess without bleeding; D12.3 Benign neoplasm of transverse colon; D12.5 Benign neoplasm of sigmoid colon | CPT/HCPCS: 45385; 45380; 88305 ==